=== PATIENT | male | born 1955 | race Caucasian/White ===

== ENCOUNTER 2017-01-25 21:21 | Observation (INO) | payer SELFPAY ==
--- NOTE | ~2017-01-25 | HP ---
History And Physical [facility] [address] [place]. [address] NAME: ANGIE CHAIREZ : 59 STATUS : ADM Filemon PAT#: [id number] AGE: 61 ADM/REG DATE : 01/25/17 MR#: [id number] REPORT SERV DATE: 01/26/17 DICTATED BY: JOHNNIE GEE DATE: 01/25/17 REPORT STATUS : Draft TRANSCRIBED BY: MODL DATE: 01/25/17 DATE OF ADMISSION: 01/25/2017 CHIEF COMPLAINT: Abdominal pain. HISTORY OF PRESENT ILLNESS: This is a 61-year-old -[place] male with history of recurrent pancreatitis in the past, essential hypertension, and diabetes, who presents to the emergency room at [facility], with abdominal pain. History is obtained from the patient and reviewing data available on the [email or web address] system. 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 In the last three days or so, he has developed abdominal pain which he is familiar with as he has had three other episodes of pancreatitis. He decided to starve himself, did not eat or drink and when he came home on the weekend, there was no relief from the pain, and it had actually gotten worse. He decided to come to the emergency room for evaluation. During this time, he did not have any nausea, vomiting, bleeding from anywhere, or any other symptoms. In the emergency room, his lipase was 2642, and Hospitalist Service is asked to admit him for further evaluation and treatment. At the time of my evaluation, he denied any chest pain, palpitations, or orthopnea. He had no cough, hemoptysis, night sweats, or weight loss. He has not had any falls or loss of consciousness. No history of recent fevers, chills, nausea, vomiting, diarrhea, or any other significant issues. No recent episodes of binge drinking, travel, or other significant history. PAST MEDICAL HISTORY: Significant for history of recurrent pancreatitis, essential hypertension, and diabetes mellitus type 2. He has had a cholecystectomy and appendectomy. SOCIAL HISTORY: He has about a 40 to 45-pack year history of smoking and continues to do so. He drinks about six to ten beers on the weekends when he is home. No other history of recreational drug use. FAMILY HISTORY: Noncontributory. MEDICATIONS: At home were reviewed by me in the chart today and reordered by me. REVIEW OF SYSTEMS: As in history of present illness. All other systems were reviewed in detail and are quite unremarkable. PHYSICAL EXAMINATION: GENERAL: This is a pleasant 61-year-old, not in any acute distress. HEENT: His head is atraumatic, normocephalic. He is alert, awake, oriented to time, place, and person. His pupils are equal and reacting to light and accommodating. External ocular muscles are intact. Membranes are moist and pink. Sclerae are nonicteric. History And Physical [address] [place]. [address] NAME: ANGIE CHAIREZ : 59 STATUS : ADM Filemon PAT#: [id number] AGE: 61 ADM/REG DATE : 01/25/17 MR#: [id number] REPORT SERV DATE: 01/26/17 DICTATED BY: JOHNNIE GEE DATE: 01/25/17 REPORT STATUS : Draft TRANSCRIBED BY: KASSI DATE: 01/25/17 NECK: Supple with no jugular venous distention, lymphadenopathy, or thyromegaly. LUNGS: Clear to auscultation with no wheezes, rubs, or crackles. HEART: Heart sounds were regular with no murmurs, rubs, or gallops. ABDOMEN: Soft, nontender. Bowel sounds are present. There is some epigastric tenderness. No rebound or guarding. No rigidity. EXTREMITIES: Showed no cyanosis, clubbing, or edema. NEUROLOGIC: Grossly intact. No focal sensory or motor deficits. Higher functions appeared intact. Gait was not examined. VITAL SIGNS: His temperature was 98 degrees Fahrenheit, pulse 89, respirations 15 a minute, blood pressure was 169/96, oxygen saturations were 96%, breathing 2 L of oxygen via nasal cannula. LABORATORY DATA: Reviewed on the [employer] system showed CMP which was normal, blood glucose of 137. Albumin was 4, globulin 3.7. Alkaline phosphatase was 62. ALT and AST were within normal limits. Lipase was 2642. CBC was within normal limits. Platelet count was 127,000. Urinalysis was grossly unremarkable. CT of the abdomen and pelvis done in the emergency room today was reviewed by me on the PACS today and interpreted by me. Official radiology report was also reviewed. According to the radiologist, a subtle infiltration of the fat planes about the proximal pancreatic body and junction with the pancreas suggesting an early acute focal pancreatitis pattern. IMPRESSION: 1. Abdominal pain. 2. Acute pancreatitis. 3. Essential hypertension. 4. Diabetes mellitus, type 2. 5. History of recurrent pancreatitis. PLAN: We will admit Mr. Chairez to the Hospitalist Service with defensive monitoring for a 24 hour observation. We will start him on aggressive fluid replacement for resuscitation, keep him n.p.o. for tonight and provide intravenous Zofran and Phenergan if needed. We will also get Gastroenterology to see in the morning. Meanwhile, we just finished pain control with intravenous Dilaudid given as needed. Blood sugar control with NovoLog given subcutaneously per sliding scale and check his A1c. We will also place him on unfractionated heparin for DVT prophylaxis while he is here. He will be continued on all other home medications and treatments as well. We will also get a GI consultation in the morning to evaluate. I have discussed the above plans with the patient. His questions were answered, and he is agreeable to the above recommendations. /KASSI Johnnie Gee M.D. / [id number] History And Physical [address] [address] NAME: ANGIE CHAIREZ : 59 STATUS : ADM Filemon PAT#: [id number] AGE: 61 ADM/REG DATE : 01/25/17 MR#: [id number] REPORT SERV DATE: 01/26/17 DICTATED BY: JOHNNIE GEE DATE: 01/25/17 REPORT STATUS : Draft TRANSCRIBED BY: KASSI DATE: 01/25/17 CC: Srini Walker II, MD
--- NOTE | ~2017-01-25 | DS ---
Discharge Summary [facility] [address] [place]. [address] NAME: ANGIE MARION : 59 STATUS : DIS Filemon PAT#: [id number] AGE: 61 ADM/REG DATE : 01/25/17 MR#: [id number] REPORT SERV DATE: 01/28/17 DICTATED BY: DATE: REPORT STATUS : Draft TRANSCRIBED BY: MODL DATE: 01/27/17 ADMISSION DATE: 01/25/2017 DISCHARGE DATE: 01/27/2017 DISCHARGE DIAGNOSES: 1. Acute pancreatitis, recurrent, now resolving. 2. Abdominal pain. 3. Type 2 diabetes mellitus. 4. Hypertension. 5. Tobacco/alcohol abuse. 6. Thrombocytopenia, chronic. HOSPITAL COURSE: Please refer to history and physical dated 01/26/[address] Johnnie Joshi for complete details pertaining to patient's initial presentation upon admission and health history. Briefly, the patient is a 61-year-old male with a history of recurrent pancreatitis related to alcohol abuse, type 2 diabetes, and hypertension. The patient presented to the emergency department on 01/25/2017 with complaints of abdominal pain over the past three or four days prior. The patient believed the abdominal pain to be associated with pancreatitis as he has had at least three other episodes in the past. Upon emergency room evaluation, patient's lipase was reported to be 2642 and patient was admitted to the Hospitalist Service for further evaluation and treatment. It is noteworthy to mention that patient was hospitalized on 02/26/2015 and 04/03/2015 for acute pancreatitis related to alcohol consumption. Dr. Ene Rai, GI, was consulted 04/03/2015 regarding acute pancreatitis recurrent. At that time, it was believed that recurrent pancreatitis was related to tobacco and alcohol use. The patient was counseled extensively on quitting smoking and alcohol as to prevent further episodes in the future. Upon this admission, patient reported continued use of tobacco and alcohol. Patient stated he consumes six to eight beers one day per week. The patient responded well to aggressive IV fluid hydration and pain medication. Diet has been advanced as tolerated and now patient is consuming regular diet without nausea and vomiting. Abdominal pain described mostly epigastric in nature is almost resolved. 1. Acute pancreatitis, recurrent. This is likely related to continued tobacco and alcohol abuse. Lipase has trended down to 926. No other interventions were indicated. The patient will follow up with outpatient GI as needed. 2. Abdominal pain, acute. This is secondary to recurrence of acute pancreatitis. The patient responded well to IV pain medications and will receive one dose of p.o. hydrocodone before discharge. Otherwise, no other prescriptions for pain medication are indicated. Discharge Summary [place] [id number] [facility] [place]. [address] NAME: ANGIE MARION : 59 STATUS : DIS Filemon PAT#: [id number] AGE: 61 ADM/REG DATE : 01/25/17 MR#: [id number] REPORT SERV DATE: 01/28/17 DICTATED BY: DATE: REPORT STATUS : Draft TRANSCRIBED BY: MODL DATE: 01/27/17 3. Type 2 diabetes. The patient's A1c has been elevated to almost 10 in the past. Per patient, recent A1c was 7.5. Patient is continuing to follow up every six months with primary care for management. 4. Hypertension. Blood pressure has remained stable, continue home dose of lisinopril. 5. Tobacco and alcohol use. Patient was counseled on benefits of cessation. Patient has no plans to stop smoking or discontinuing use of alcohol. Patient was educated on the risk associated with continued alcohol use in the setting of recurrent pancreatitis. 6. Thrombocytopenia, chronic. This is likely related to chronic alcohol and NSAID use. Patient was educated to discontinue Goody Powders and use Tylenol as needed for pain control. DISCHARGE CONDITION: At the time of discharge, the patient is hemodynamically stable. DISCHARGE DIET: Regular diet as tolerated. DISCHARGE MEDICATIONS: 1. Tylenol 325 mg tablet, take two tablets p.o. every four hours as needed for pain. 2. Metformin 1000 mg tablet p.o. twice daily. 3. Lisinopril 10 mg tablet p.o. daily. 4. BC powders 1 packet p.o. three times daily as needed. The patient was advised to discontinue this medication secondary to low platelets and increased risk of bleeding. DISCHARGE INSTRUCTIONS: 1. Follow up with primary care physician as scheduled for management of type 2 diabetes, hypertension, and chronic mild thrombocytopenia. 2. Patient was instructed to return to the emergency department for any acute recurrence of uncontrolled abdominal pain, nausea, vomiting, fever of 100.4 or greater, or any other health concerns that are deviations from his baseline status at the time of this discharge. VIOLET/KASSI LIBBY Rees / [id number]
[2017-01-25 20:03] LABS: ASCORBIC ACID (UR NOT ORDER) NEG (NEG); BILIRUBIN, URINE NEGATIVE (NEG); ER URINALYSIS TAT 0 Hrs 08 Mins; KETONE, URINE NEGATIVE (NEG); LEUKOCYTE ESTERASE(NOT OR NEG (NEG); NITRITE (URINE) NEG (NEG); WBC (NOT ORDERED) (RFLEX) 1 (0-5)
[2017-01-25 20:20] LABS: BASOPHILS 0.6 %; BASOPHILS ABSOLUTE 0.06 10/3/uL (0.0-0.16); EOSINOPHILS 10.1 %; EOSINOPHILS ABSOLUTE 1.03 10/3/uL (0.0-0.53); ER CBC TAT 0 Hrs 05 Mins; HEMOGLOBIN 18.1 g/dL (13.6-17.8); IMMATURE GRANULOCYTES 0.2 %; IMMATURE GRANULOCYTES ABSOLUTE 0.02 10/3/uL (0.0-0.11); LYMPHOCYTES 25.2 %; LYMPHOCYTES ABSOLUTE 2.57 10/3/uL (0.67-4.30); MEAN CORPUS HGB CONC 34.7 g/dL (32.0-36.0); MEAN PLATELET VOLUME 11.6 fL (9.2-13.0); MONOCYTES 8.6 %; MONOCYTES ABSOLUTE 0.88 10/3/uL (0.21-1.20); NEUTROPHILS 55.3 %; NEUTROPHILS ABSOLUTE 5.62 10/3/uL (2.02-8.40); PLATELET COUNT 127 10/3/uL (150-400); RBC DISTRIBUTION WIDTH 13.3 % (12.0-16.0); WHITE BLOOD CELLS 10.2 10/3/uL (4.5-10.5)
[2017-01-25 20:21] LABS: HEMATOCRIT 52.2 % (40.0-51.0); MANUAL DIFF NO %; MEAN CORPUSCULAR HEMOGLOB 33.5 pg (26.0-34.0); MEAN CORPUSCULAR VOLUME 96.7 fL (80-100)
[2017-01-25 20:36] LABS: A/G RATIO 1.1 (0.7-1.9); ALKALINE PHOSPHATASE 62 U/L (45-117); CALCIUM, SERUM 9.2 MG/DL (8.5-10.4); CHLORIDE, SERUM 107 MMOL/L (96-112); CREATININE 0.91 MG/DL (0.70-1.30); GFR AFRICAN AMERICAN 107 ML/MIN (>=60); GFR NON AFRICAN AMERICAN 92 ML/MIN (>=60); GLOBULIN 3.7 G/DL (2.5-4.1); POTASSIUM, SERUM 3.8 MMOL/L (3.5-5.3); SGOT(AST) 9 U/L (5-40); SGPT(ALT) 20 U/L (5-65); SODIUM, SERUM 142 MMOL/L (135-148); TOTAL BILIRUBIN 0.4 MG/DL (0-1.2); TOTAL PROTEIN 7.7 G/DL (6.0-8.5)
[2017-01-25 20:37] LABS: BUN (BLOOD UREA NITROGEN) 13 MG/DL (6-23); CO2 (CARBON DIOXIDE) 31 MMOL/L (24-34); GLUCOSE, SERUM 137 MG/DL (60-99)
[~2017-01-25 21:21] MED LIST: AMARYL2 PO; AMIT10 PO; GLUCOPHAGE1000 MG PO; GLUCPH PO; NORCO1 TA1 PO; NORV5 PO; PR12.5 PO; PRILO PO; PRIN10 PO; PRIN5 PO; [UNRECOGNIZED DRUG - OTHER] PO; [UNRECOGNIZED DRUG - OTHER] PO
[2017-01-26 05:54] LABS: BASOPHILS 0.5 %; BASOPHILS ABSOLUTE 0.05 10/3/uL (0.0-0.16); EOSINOPHILS 9.6 %; EOSINOPHILS ABSOLUTE 0.88 10/3/uL (0.0-0.53); HEMATOCRIT 48.6 % (40.0-51.0); HEMOGLOBIN 16.4 g/dL (13.6-17.8); IMMATURE GRANULOCYTES 0.2 %; IMMATURE GRANULOCYTES ABSOLUTE 0.02 10/3/uL (0.0-0.11); LYMPHOCYTES 22.9 %; LYMPHOCYTES ABSOLUTE 2.09 10/3/uL (0.67-4.30); MEAN CORPUS HGB CONC 33.7 g/dL (32.0-36.0); MEAN CORPUSCULAR HEMOGLOB 33.1 pg (26.0-34.0); MEAN CORPUSCULAR VOLUME 98.2 fL (80-100); MEAN PLATELET VOLUME 11.7 fL (9.2-13.0); MONOCYTES 8.3 %; MONOCYTES ABSOLUTE 0.76 10/3/uL (0.21-1.20); NEUTROPHILS 58.5 %; NEUTROPHILS ABSOLUTE 5.33 10/3/uL (2.02-8.40); PLATELET COUNT 113 10/3/uL (150-400); RBC DISTRIBUTION WIDTH 13.1 % (12.0-16.0); RED CELL COUNT 4.95 10/6/uL (4.7-6.1); WHITE BLOOD CELLS 9.1 10/3/uL (4.5-10.5)
[2017-01-26 06:00] LABS: MANUAL DIFF NO %
[2017-01-26 06:04] LABS: BUN (BLOOD UREA NITROGEN) 12 MG/DL (6-23); CHLORIDE, SERUM 109 MMOL/L (96-112); CO2 (CARBON DIOXIDE) 27 MMOL/L (24-34); CREATININE 0.71 MG/DL (0.70-1.30); GFR AFRICAN AMERICAN 119 ML/MIN (>=60); GFR NON AFRICAN AMERICAN 103 ML/MIN (>=60); GLUCOSE, SERUM 146 MG/DL (60-99); PHOSPHORUS, SERUM 2.9 MG/DL (2.5-4.5); POTASSIUM, SERUM 4.1 MMOL/L (3.5-5.3); SODIUM, SERUM 142 MMOL/L (135-148)
[2017-01-26 06:06] LABS: CALCIUM, SERUM 8.2 MG/DL (8.5-10.4)
[2017-01-27 05:13] LABS: BASOPHILS 0.7 %; BASOPHILS ABSOLUTE 0.05 10/3/uL (0.0-0.16); EOSINOPHILS 11.2 %; EOSINOPHILS ABSOLUTE 0.75 10/3/uL (0.0-0.53); HEMATOCRIT 44.3 % (40.0-51.0); IMMATURE GRANULOCYTES 0.1 %; IMMATURE GRANULOCYTES ABSOLUTE 0.01 10/3/uL (0.0-0.11); LYMPHOCYTES 29.8 %; MEAN CORPUS HGB CONC 33.9 g/dL (32.0-36.0); MEAN CORPUSCULAR VOLUME 97.4 fL (80-100); MEAN PLATELET VOLUME 11.1 fL (9.2-13.0); MONOCYTES 9.1 %; MONOCYTES ABSOLUTE 0.61 10/3/uL (0.21-1.20); NEUTROPHILS 49.1 %; PLATELET COUNT 100 10/3/uL (150-400); RBC DISTRIBUTION WIDTH 12.8 % (12.0-16.0); RED CELL COUNT 4.55 10/6/uL (4.7-6.1); WHITE BLOOD CELLS 6.7 10/3/uL (4.5-10.5)
[2017-01-27 05:20] LABS: MANUAL DIFF NO %
[2017-01-27 05:30] LABS: BUN (BLOOD UREA NITROGEN) 10 MG/DL (6-23); CALCIUM, SERUM 8.3 MG/DL (8.5-10.4); CHLORIDE, SERUM 106 MMOL/L (96-112); CO2 (CARBON DIOXIDE) 28 MMOL/L (24-34); CREATININE 0.71 MG/DL (0.70-1.30); GFR AFRICAN AMERICAN 119 ML/MIN (>=60); GFR NON AFRICAN AMERICAN 103 ML/MIN (>=60); GLUCOSE, SERUM 161 MG/DL (60-99); POTASSIUM, SERUM 3.8 MMOL/L (3.5-5.3); SODIUM, SERUM 140 MMOL/L (135-148)
[2017-01-27 08:03] LABS: ALBUMIN 3.1 G/DL (3.5-5.0); ALKALINE PHOSPHATASE 54 U/L (45-117); SGOT(AST) 15 U/L (5-40); SGPT(ALT) 22 U/L (5-65); TOTAL BILIRUBIN 0.4 MG/DL (0-1.2); TOTAL PROTEIN 6.1 G/DL (6.0-8.5)
== END 2017-01-27 13:38 | disposition home or self-care (01) ==
LOC: ER 21:21 → CDU1 22:23 → 4EA 23:09
PROVIDERS: Emergency Medicine; Internal Medicine Pulmonary Disease; Nurse Practitioner Family
DX: K85.90 Acute pancreatitis without necrosis or infection, unspecified (principal); I10 Essential (primary) hypertension; E11.9 Type 2 diabetes mellitus without complications; D69.6 Thrombocytopenia, unspecified; Z90.49 Acquired absence of other specified parts of digestive tract; F17.210 Nicotine dependence, cigarettes, uncomplicated; Z79.899 Other long term (current) drug therapy
CPT/HCPCS: 74176; 80048; 80053; 81001; 82150; 82962; 83690; 83735; 84100; 85025; 96372; 96374; 96376; 99285; A9270-GY; G0378; J1170; J2405

== ENCOUNTER 2017-02-06 13:03 | Emergency (ER) | payer SELFPAY ==
[2017-02-06 12:33] LABS: BASOPHILS 0.8 %; BASOPHILS ABSOLUTE 0.07 10/3/uL (0.0-0.16); EOSINOPHILS 8.2 %; EOSINOPHILS ABSOLUTE 0.75 10/3/uL (0.0-0.53); ER CBC TAT 0 Hrs 03 Mins; HEMOGLOBIN 18.5 g/dL (13.6-17.8); IMMATURE GRANULOCYTES 0.2 %; IMMATURE GRANULOCYTES ABSOLUTE 0.02 10/3/uL (0.0-0.11); LYMPHOCYTES 25.5 %; LYMPHOCYTES ABSOLUTE 2.35 10/3/uL (0.67-4.30); MEAN CORPUS HGB CONC 36.3 g/dL (32.0-36.0); MEAN CORPUSCULAR HEMOGLOB 34.2 pg (26.0-34.0); MEAN CORPUSCULAR VOLUME 94.3 fL (80-100); MEAN PLATELET VOLUME 11.4 fL (9.2-13.0); MONOCYTES 6.7 %; MONOCYTES ABSOLUTE 0.62 10/3/uL (0.21-1.20); NEUTROPHILS 58.6 %; NEUTROPHILS ABSOLUTE 5.39 10/3/uL (2.02-8.40); PLATELET COUNT 168 10/3/uL (150-400); RBC DISTRIBUTION WIDTH 13.3 % (12.0-16.0); RED CELL COUNT 5.41 10/6/uL (4.7-6.1); WHITE BLOOD CELLS 9.2 10/3/uL (4.5-10.5)
[2017-02-06 12:34] LABS: MANUAL DIFF NO %
[2017-02-06 12:49] LABS: CHLORIDE, SERUM 104 MMOL/L (96-112); CO2 (CARBON DIOXIDE) 28 MMOL/L (24-34); CREATININE 0.94 MG/DL (0.70-1.30); GFR AFRICAN AMERICAN 102 ML/MIN (>=60); GFR NON AFRICAN AMERICAN 88 ML/MIN (>=60); SGPT(ALT) 30 U/L (5-65); SODIUM, SERUM 138 MMOL/L (135-148); TOTAL BILIRUBIN 0.5 MG/DL (0-1.2)
[2017-02-06 12:52] LABS: A/G RATIO 1.1 (0.7-1.9); ALKALINE PHOSPHATASE 67 U/L (45-117); BUN (BLOOD UREA NITROGEN) 14 MG/DL (6-23); CALCIUM, SERUM 9.7 MG/DL (8.5-10.4); GLOBULIN 3.7 G/DL (2.5-4.1); GLUCOSE, SERUM 234 MG/DL (60-99); POTASSIUM, SERUM 4.2 MMOL/L (3.5-5.3); SGOT(AST) 16 U/L (5-40); TOTAL PROTEIN 7.7 G/DL (6.0-8.5)
== END 2017-02-06 16:17 | disposition home or self-care (01) ==
LOC: ER 13:03
PROVIDERS: Physician Assistant
DX: K86.1 Other chronic pancreatitis (principal); I10 Essential (primary) hypertension; E11.9 Type 2 diabetes mellitus without complications; F17.200 Nicotine dependence, unspecified, uncomplicated; Z79.84 Long term (current) use of oral hypoglycemic drugs
CPT/HCPCS: 74176; 80053; 83690; 85025; 96374; 96375; 96376; 99284; J1170; J2405